=== PATIENT | female | born 1980 | race Hispanic/Latino ===

== ENCOUNTER 2019-04-18 01:16 | Emergency (ER) | payer SELFPAY ==
[~2019-04-18] VITALS: Ht 157.5 cm; Wt 82.1 kg
== END 2019-04-18 03:31 | disposition home or self-care (01) ==
LOC: ED 01:16
DX: K52.9 Noninfective gastroenteritis and colitis, unspecified (principal)
CPT/HCPCS: 80053; 81001; 83735; 85025; 96361; 96374; 96375; 99284-25; J1170; J2550; J7030